=== PATIENT | female | born 1980 | race Caucasian/White ===

== ENCOUNTER 2020-02-16 10:03 | Outpatient (CLI) | payer OTHER, SELFPAY ==
[2020-02-16 10:47] LABS: Beta HCG Quantitative < 2.39 mIU/ML
== END 2020-02-16 10:04 | disposition home or self-care (01) ==
PROVIDERS: Visit Provider Obstetrics & Gynecology
DX: Z30.430 Encounter for insertion of intrauterine contraceptive device (principal)
CPT/HCPCS: 36415; 84702

== ENCOUNTER → 2020-04-14 09:59 | Outpatient (CLI) | payer OTHER, SELFPAY ==
--- NOTE | ~2020-04-14 | US_ITS ---
EXAMINATION: US pelvic complete w TV DATE: 04/14/2020 10:37 INDICATION: Missing IUD strings TECHNIQUE: Multiple transabdominal and endovaginal sonographic images of the pelvis were obtained. COMPARISON: 01/13/2017 FINDINGS: The uterus measures 8.4 x 3.0 x 4.3 cm. An IUD is present in expected position. The endomet rial complex measures 12 mm. The right ovary measures 3.0 x 2.0 x 3.3 cm. The left ovary measures 3.4 x 1.7 x 2.7 cm. There is normal vascular flow in the ovaries. There is no free fluid in the pelvis. IMPRESSION: 1. No sonographic correlate for the patient's symptoms. 2. IUD in expected position. Reviewed, dictated and finalized at location A.
== END ==
PROVIDERS: Visit Provider Obstetrics & Gynecology
DX: Z30.431 Encounter for routine checking of intrauterine contraceptive device (principal)
CPT/HCPCS: 76830; 76856

== ENCOUNTER → 2021-01-29 01:26 | Outpatient (CLI) | payer OTHER, SELFPAY ==
[2021-01-29 18:53] LABS: SARS-CoV-2 RNA PCR Negative
== END ==
PROVIDERS: PCP Family Medicine; Visit Provider Surgery
DX: Z01.812 Encounter for preprocedural laboratory examination (principal); Z20.822 Contact with and (suspected) exposure to COVID-19
CPT/HCPCS: C9803; U0003; U0005

== ENCOUNTER 2021-02-01 02:47 | Day surgery (SDC) | payer OTHER, SELFPAY ==
[2021-01-24 14:46] VITALS: BMI 36.7
--- NOTE | 2021-02-01 07:09 | WPDHPUPDATE1 ---
History and Physical Update Update Date/Time: 02/01/21 07:09 History and Physical has been reviewed, including an updated exam of the patient. There are NO changes in the patient's condition. Risks, benefits, and alternatives have been discussed and questions answered. Patient agrees to proceed with procedure.
[2021-02-01 10:55] VITALS: BP 136/81; PULSE 67; RESP 16; TEMP 36.7; O2SAT 100
--- NOTE | 2021-02-01 11:16 | WPDANESEPPF ---
Anes - Initial Pre Proc Eval Procedure: Operation Date: 02/01/21 12:15 Proposed Procedures p Excision Of Subcutaneous Mass Posterior Base Of Neck - Dany Leon MD Date/Time: 02/01/21 11:16 Surgeon: Dany Leon MD Pre Op Diagnosis: Subcutaneous 5cm mass posterior base of neck Patient Data Age: 40 Gender: F Height: 5 ft 4 in Weight: 96.8 kg Last Vital Signs Temp 36.7 C 02/01/21 10:55 Pulse 67 02/01/21 10:55 Resp 16 02/01/21 10:55 BP 136/81 02/01/21 10:55 Pulse Ox 100 02/01/21 10:55 Allergies Allergy/AdvReac Type Severity Reaction Status Date / Time Sulfa (Sulfonamide Allergy Mild Rash Verified 02/01/21 10:35 Antibiotics) Home Medications Medication Instructions Recorded Confirmed Type levonorgestrel 20 mcg/24 hours (6 1 device I-UTERINE ONCE 02/17/20 01/24/21 History yrs) 52 mg intrauterine device crisaborole 2 % topical ointment 1 applic TOPICAL BID 04/28/20 01/24/21 History lisinopril 20 mg tablet 20 mg PO DAILY #90 tablet 09/13/20 02/01/21 Rx Patient hx anesthesia problems: none Family hx anesthesia problems: none PMFSH Past Medical History Medical History (Updated 02/01/21 @ 11:17 by Rogelio Barahona MD) Eczema Hypertension Obesity Surgical History Surgical History H/O knee surgery 1998 Family History Family History Father Diabetes mellitus Hypertension Heart disease COPD (chronic obstructive pulmonary disease) Grandparent Breast cancer Grandparent Family history of malignant neoplasm of male breast Family history of lung cancer Family history of cardiovascular disease Family history of malignant neoplasm Mother Family history of thyroid disease Sibling Hypertension Unknown Family history of lung cancer Allergies Other Family history of allergic disorder Social History Social History Smoking status: Never smoker Second hand tobacco smoke exposure: No Alcohol intake: current Substance use: never Substance use type: does not use Living arrangements: with family Additional occupation/education comments: teacher Gender identity (if verbalized by the patient): Female Spiritual care concerns: No Agree to blood products: Yes Anes - Eval Final PreProcedure Day of Procedure 02/01/21 11:16 Patient weight: obese Heart: regular rate and rhythm Lungs: clear to auscultation Airway: Mallampati scale class II and other (full braces) Neurological: alert and oriented Last oral intake: >/= 8 hours ASA classification: II Emergent: no Anesthetic plan: proceed Anesthesia type and monitoring: general GIVS and standard monitoring Informed Consent: The patient's anesthetic plan and its attendant risks and benefits were discussed with the patient/family/POA. Questions were solicited and answers provided to the satisfaction of the patient/family/POA.
[2021-02-01] MEDS: LACTATED RINGERS 1,000 ML 30 ML IV CONT (11:24)
[2021-02-01] MEDS: ceFAZolin 2 GM/D5W 50 ML 2 GM/50 ML BAG IVPB (12:28)
[2021-02-01] MEDS: BUPIVACAINE/EPINEPHRINE 0.5% 30 ML VIAL INFILTRATE (12:47)
--- NOTE | 2021-02-01 13:14 | P.OP_ITS ---
Procedure Note - Detailed Date of procedure: 02/01/21 Pre-op diagnosis: Subcutaneous 5cm mass posterior base of neck 5 cm subcutaneous mass posterior right neck Post-op diagnosis: other (6.5 cm subcutaneous mass posterior right neck) Procedure performed: Excision subcutaneous mass neck, 6.5 cm Description of procedure: The patient was checked and marked in the preoperative holding area wall was then taken to surgery and IV sedation was administered. She was placed in a prone position with the chin somewhat tucked. The area of the previously marked subcutaneous mass was prepped and draped. Local anesthesia was infiltrated over the area of the anticipated incision as well as around the base of the mass. Incision was made and deepened through this skin and subcutaneous down to the subcutaneous mass. The mass had the appearance of a lipoma which was expected. We used blunt and sharp dissection as well as cautery to shell the mass from the surrounding subcutaneous. It came out as 1 mass. I measured the subcutaneous mass. It was 6.5 cm by 4 cm and 2.5 cm thick. The wound was made hemostatic with the cautery. The wound was closed with a deep layer of interrupted 3 0 Vicryl suture. Subcuticular interrupted 4 O Vicryl skin stitches were placed. A running 4 0 Monocryl subcuticular skin stitch was placed. The wound was dressed with Exofin surgical adhesive. The patient was returned to a supine position, awakened and taken to outpatient recovery in good condition. Counts were correct x2. Anesthesia: MAC and local (0.5% Marcaine with epinephrine) Surgeon: Dany Leon MD Industrial Hygienist: Katiana WOODS Estimated blood loss (mL): 5 Drains: No Packing: No Pathology: yes (Subcutaneous mass posterior neck consistent with lipoma) Complications: None Condition: stable Disposition: same day Findings: Lipoma
[2021-02-01 13:15] VITALS: BP 147/93; PULSE 109; RESP 16; O2SAT 97
[2021-02-01 13:45] VITALS: BP 123/80; PULSE 75; RESP 14
[2021-02-01 14:15] VITALS: BP 117/79; PULSE 74; RESP 14
== END 2021-02-01 14:55 | disposition home or self-care (01) ==
PROVIDERS: PCP Family Medicine; Visit Provider Surgery
PROC: (CPT 21552; principal; 2021-02-01 12:15)
DX: D17.0 Benign lipomatous neoplasm of skin and subcutaneous tissue of head, face and neck (principal); I10 Essential (primary) hypertension; L30.9 Dermatitis, unspecified; E66.9 Obesity, unspecified; Z68.36 Body mass index [BMI] 36.0-36.9, adult
CPT/HCPCS: 21552; 88304; C9803; J0690; J1200; J2250; J2405; J2704; J3010; J7120; U0003; U0005

== ENCOUNTER → 2022-07-10 15:18 | Outpatient (CLI) | payer OTHER, SELFPAY ==
--- NOTE | ~2022-07-10 | MM_ITS ---
EXAMINATION: MM screening cici BI w young HISTORY: Screening mammogram TECHNIQUE: Craniocaudal and mediolateral oblique 3-D tomosynthesis images were obtained and synthetic 2-D images were generated. CAD analysis was submitted and interpreted. COMPARISON: None, baseline BREAST PARENCHYMAL COMPOSITION: There are scattered areas of fibroglandular density. FINDINGS: There is no suspicious mass, calcification, or architectural distortion to suggest malignan cy in either breast. IMPRESSION: 1. No mammographic evidence of malignancy. 2. Recommend routine screening mammography in one year. BI-RADS Category 1: Negative Reviewed, dictated and finalized at location A.
== END ==
PROVIDERS: PCP Family Medicine; Visit Provider Obstetrics & Gynecology
DX: Z12.31 Encounter for screening mammogram for malignant neoplasm of breast (principal)
CPT/HCPCS: 77063; 77067

== ENCOUNTER → 2023-01-16 15:24 | Outpatient (CLI) | payer OTHER, SELFPAY ==
--- NOTE | ~2023-01-16 | US_ITS ---
Thyroid ultrasound. Clinical History: Iodine deficiency goiter Findings: Real-time sonography of the thyroid gland was performed. The right lobe measures 5.0 x 1.3 x 1.6 cm. The left lobe measures 4.3 x 0.9 x 1.3 cm. The isthmus is 5 mm in AP diameter. No nodules identified. Impression: Unremarkable exam.. Reviewed, dictated and finalized at location . Impression: Unremarkable exam..
== END ==
PROVIDERS: PCP Physician Assistant Medical; Visit Provider Physician Assistant Medical
DX: E01.0 Iodine-deficiency related diffuse (endemic) goiter (principal)
CPT/HCPCS: 76536

== ENCOUNTER → 2023-08-06 15:48 | Outpatient (CLI) | payer OTHER, SELFPAY ==
--- NOTE | ~2023-08-06 | MM_ITS ---
EXAMINATION: MM screening cici BI w young HISTORY: Screening mammogram TECHNIQUE: Craniocaudal and mediolateral oblique 3-D tomosynthesis images were obtained and synthetic 2-D images were generated. CAD analysis was submitted and interpreted. COMPARISON: 07/10/2022 BREAST PARENCHYMAL COMPOSITION:There are scattered areas of fibroglandular density. FINDINGS: No suspicious mass, calcification, or architectural distortion are identified in either flora ast to suggest malignancy. There has been no suspicious interval change. IMPRESSION: No mammographic evidence of malignancy. Recommend routine screening mammography in one year. BI-RADS Category 1: Negative Reviewed, dictated and finalized at location .
== END ==
PROVIDERS: PCP Family Medicine; Visit Provider Obstetrics & Gynecology
DX: Z12.31 Encounter for screening mammogram for malignant neoplasm of breast (principal)
CPT/HCPCS: 77063; 77067

== ENCOUNTER 2024-08-11 16:11 | Outpatient (CLI) | payer OTHER, SELFPAY ==
--- NOTE | ~2024-08-11 | MM_ITS ---
EXAMINATION: MM screening cici BI w young HISTORY: Screening TECHNIQUE: Craniocaudal and mediolateral oblique 3-D tomosynthesis images were obtained and synthetic 2-D images were generated. CAD analysis was submitted and interpreted. COMPARISON: Comparison to multiple prior studies sequentially, with oldest reviewed study dated 07/10. BREAST PARENCHYMAL COMPOSITION: Not dense: There are scattered areas of fibroglandular density. FINDINGS: There is no evidence of suspicious mass, calcification, or architectural distortion to sugg est malignancy in either breast. There has been no suspicious interval change. IMPRESSION: 1. No mammographic evidence of malignancy. 2. Recommend routine screening mammography in one year. BI-RADS Category 1: Negative Reviewed, dictated and finalized at location B.
== END 2024-08-11 16:12 | disposition home or self-care (01) ==
LOC: MICIMG 16:12
PROVIDERS: PCP Family Medicine; Visit Provider Obstetrics & Gynecology
DX: Z12.31 Encounter for screening mammogram for malignant neoplasm of breast (principal)
CPT/HCPCS: 77063; 77067

== ENCOUNTER 2025-08-17 14:31 | Outpatient (CLI) | payer OTHER, SELFPAY ==
--- NOTE | ~2025-08-17 | MM_ITS ---
EXAMINATION: MM screening cici BI w young HISTORY: Screening TECHNIQUE: Craniocaudal and mediolateral oblique 3-D tomosynthesis images were obtained and synthetic 2-D images were generated. CAD analysis was submitted and interpreted. COMPARISON: Comparison to multiple prior studies sequentially, with oldest reviewed study dated 2 07/10/2022. BREAST PARENCHYMAL COMPOSITION: There are scattered areas of fibroglandular density. FINDINGS: There is no evidence of suspicious mass, calcification, or architectural distortion to suggest malignancy in either breast. There has been no suspicious interval change. IMPRESSION: 1. No mammographic evidence of malignancy. 2. Recommend routine screening mammography in one year. BI-RADS Category 1: Negative Reviewed, dictated and finalized at location B.
== END 2025-08-17 14:32 | disposition home or self-care (01) ==
LOC: MICIMG 14:32
PROVIDERS: PCP Nurse Practitioner Family; Visit Provider Obstetrics & Gynecology
DX: Z12.31 Encounter for screening mammogram for malignant neoplasm of breast (principal)
CPT/HCPCS: 77063; 77067